=== PATIENT | female | born 2000 | race African-American/Black ===

== ENCOUNTER 2024-09-10 11:35 | Emergency (ER) | payer BC ==
[~2024-09-10] VITALS: Ht 165.1 cm; Wt 54.1 kg
[2024-09-10] MEDS ORDERED: INSU100I15 SQ (11:47)
[2024-09-10] MEDS ORDERED: INSU3INS3 SQ (11:47)
[2024-09-10 12:00] LABS: GLUCOMETER DEV NAME(LOC) ER.7; GLUCOSE,POINT OF CARE 311 MG/DL (70-110)
[2024-09-10 12:15] LABS: PLATELET COUNT (AUTO) 213 K/uL (150-450); RED BLOOD CELL COUNT(AUTO) 5.00 MIL/uL (4.00-5.20); RED CELL DISTRIBUTION WIDTH 14.0 % (11.5-14.5); WHITE BLOOD COUNT (AUTO) 8.1 K/uL (4.5-11.0)
[2024-09-10 12:17] LABS: CALCIUM, TOTAL 9.3 mg/dL (8.8-10.5); CREATININE 0.75 mg/dL (0.60-1.30); GLOMERULAR FILTR. RATE CALC > 60 mL/min (>60); GLUCOSE,RANDOM 304 mg/dL (70-110); SODIUM SERUM 137 mmol/L (136-145); UREA NITROGEN, BLOOD 7 mg/dL (7-18)
[2024-09-10] MEDS: ONDANSETRON HCL 4 MG/2 ML VIAL IVP ONE (13:17)
[2024-09-10] MEDS: SODIUM CHLORIDE 0.9% 1,000 ML IV ONE (13:17)
[2024-09-10] MEDS: ACETAMINOPHEN 500 MG TABLET PO ONE (13:23)
[2024-09-10] MEDS: KETOROLAC TROMETHAMINE 30 MG/ML VIAL IVP ONE (14:26)
[2024-09-10 15:22] LABS: APPEARANCE,URINE CLEAR (CLEAR); GLUCOSE, URINE (UA) >=1000 mg/dL (NEGATIVE); LEUKOCYTE ESTERASE ,URINE NEGATIVE (NEGATIVE); NITRATE,URINE NEGATIVE (NEGATIVE); OCCULT BLOOD,URINE NEGATIVE (NEGATIVE); SPECIFIC GRAVITIY, URINE 1.044 (1.003-1.030)
[2024-09-10 15:35] LABS: SQUAMOUS EPITHELIAL CELL,UR Few /LPF (None Seen)
[2024-09-10 15:36] LABS: GLUCOMETER DEV NAME(LOC) ERT.7; GLUCOSE,POINT OF CARE 206 MG/DL (70-110)
[2024-09-10 15:47] VITALS: BP 127/91; PULSE 84; RESP 18; TEMP 98.1; O2SAT 99
[2024-09-10] MEDS ORDERED: PHEN-674 PO (15:48)
[2024-09-10] MEDS ORDERED: CEPH-558 PO (15:48)
[2024-09-10] MEDS: CEPHALEXIN MONOHYDRATE 500 MG CAPSULE PO ONE (16:06)
== END 2024-09-10 16:19 | disposition home or self-care (01) ==
LOC: EMS 11:38
DX: N39.0 Urinary tract infection, site not specified (principal); N94.6 Dysmenorrhea, unspecified; E11.65 Type 2 diabetes mellitus with hyperglycemia; Z79.4 Long term (current) use of insulin; Z79.899 Other long term (current) drug therapy; Z91.018 Allergy to other foods
CPT/HCPCS: 99284; 96374; 96361; 96375; 80048; 81001; 82962; 83690; 84703; 85025; 87077; 87086; 36415; J1885; J2405; J7030; 87186